=== PATIENT | male | born 1940 | race Two or more races ===

== ENCOUNTER 2021-08-30 10:16 | Inpatient (IN) | payer OTHER ==
[~2021-08-30] VITALS: Ht 167.6 cm; Wt 65.8 kg
[2021-08-30] MEDS ORDERED: PHENYTOIN SODI200 MG PO (10:38)
[2021-08-30] MEDS ORDERED: QUETIAPINE FUM400 M1 PO (10:38)
[2021-08-30] MEDS ORDERED: TAMS0.4C PO (10:39)
[2021-08-30] MEDS ORDERED: CALCIUM 600 +1 EAC3 PO (10:39)
[2021-08-30] MEDS ORDERED: FOLIC ACID0.8 M1 (10:39)
[2021-08-30] MEDS ORDERED: DOXAZOSIN MESYLA2 MG PO (10:39)
[2021-08-30] MEDS ORDERED: PLAVIX75 MG PO (10:40)
[2021-08-30] MEDS ORDERED: LASIX20 MG PO (10:40)
[2021-08-30] MEDS ORDERED: FERROUS FUMARAT89 MG PO (10:40)
[2021-08-30] MEDS ORDERED: OMEPRAZOLE20 M2 PO (10:41)
[2021-08-30] MEDS ORDERED: SERTRALINE20 MG/1 ML (10:41)
--- NOTE | 2021-08-30 10:44 | NUR ---
PACIENTE ALERTA ACOMPANADO DE [place] ESTA REFIERE QUE SE ARRANCO LA GASTRO TRISTAN LA MANANA DE [place], SE OBSERVA ATRA MOY Y SUPURANDO MIGUEL. PACIENTE CON PRECIONES BAJA 96/68. SE MONITOREAN S/V Y SE UBICA EN OBSERVACION.
--- NOTE | 2021-08-30 14:26 | NUR ---
PACIENTE EVALUADO POR . SE LE ORIENTA OSBRE TRATAMIENTO A SEGUIR. REFIERE ENTENDER. PENDIENTE CONSULTA CON DR LUIS FREEDMAN (CIRUGIA).
--- NOTE | 2021-08-30 18:30 | NUR ---
PACIENTE ORIENTADO SOBRE EL [place]. SE EXTRAEN MUESTRAS DE MIGUEL BAJO MEDIDAS ASEPTICAS SE ROTULAN Y ENVIAN AL LABORATORIO.
[2021-08-31] MEDS ORDERED: ATORVASTATIN CA10 MG (08:01)
[2021-08-31] MEDS ORDERED: ESCITALOPRAM OX20 MG (08:01)
== END 2021-09-21 11:01 | disposition expired | DRG 207 ==
LOC: ER 10:16 → MEDJ 22:09
PROVIDERS: ADMIT Internal Medicine; ATTEND Internal Medicine
PROC: BW24ZZZ Computerized Tomography (CT Scan) of Chest and Abdomen (ICD-10-PCS; 2021-08-30)
PROC: 8E0ZXY6 Isolation (ICD-10-PCS; 2021-08-30)
PROC: 4A12X4Z Monitoring of Cardiac Electrical Activity, External Approach (ICD-10-PCS; 2021-08-31)
PROC: 5A09457 Assistance with Respiratory Ventilation, 24-96 Consecutive Hours, Continuous Positive Airway Pressure (ICD-10-PCS; 2021-09-02)
PROC: 5A1955Z Respiratory Ventilation, Greater than 96 Consecutive Hours (ICD-10-PCS; principal; 2021-09-03)
PROC: 0BH17EZ Insertion of Endotracheal Airway into Trachea, Via Natural or Artificial Opening (ICD-10-PCS; 2021-09-03)
PROC: 02HV33Z Insertion of Infusion Device into Superior Vena Cava, Percutaneous Approach (ICD-10-PCS; 2021-09-09)
PROC: 30233N1 Transfusion of Nonautologous Red Blood Cells into Peripheral Vein, Percutaneous Approach (ICD-10-PCS; 2021-09-13)
PROC: 3E0F7SF Introduction of Other Gas into Respiratory Tract, Via Natural or Artificial Opening (ICD-10-PCS; 2021-09-16)
PROC: 0BH17EZ Insertion of Endotracheal Airway into Trachea, Via Natural or Artificial Opening (ICD-10-PCS; 2021-09-21)
DX: J69.0 Pneumonitis due to inhalation of food and vomit (principal); J96.01 Acute respiratory failure with hypoxia; U07.1 COVID-19; K94.23 Gastrostomy malfunction; K63.2 Fistula of intestine; D64.9 Anemia, unspecified; I11.9 Hypertensive heart disease without heart failure; I25.10 Atherosclerotic heart disease of native coronary artery without angina pectoris; G30.9 Alzheimer's disease, unspecified; F02.80 Dementia in other diseases classified elsewhere, unspecified severity, without behavioral disturbance, psychotic disturbance, mood disturbance, and anxiety; Z74.01 Bed confinement status